=== PATIENT | female | born 1990 | race Caucasian/White ===

== ENCOUNTER 2016-05-29 13:12 | Emergency (ER) | payer BC ==
[~2016-05-29 13:12] MED LIST: NIPPLECREAM TP; PRENATAL VIT1 TAB PO
--- NOTE | 2016-05-31 13:16 | ER ---
ADMIT: 05/29/2016 RM/LOC: ER [facility] MR#: [id number] [facility] [address] [place], [place] [id number] [address] [place] [address] Emergency Room Report SEX: F AGE: 25 : 1990 DATE: 05/29/2016 The patient is a 25-year-old female, came to the ER with chief complaint of right wrist pain status post tripping and falling with outstretched hand. The patient denies any head trauma or loss of consciousness. The patient has been seen by Alex, primary care doctor outside. Right hand got the x-ray and the patient was put on a splint, and sent to ER for double checking. In the ER, the patient had normal neurovascular and range of motion actively was normal but it was painful for the patient. There were no obvious skin lacerations. There was no tenderness on the snuff box. There is small tenderness on the ulnar part of the dorsum of the right wrist. Flexor and extensor tendon exams are normal. There is no tenderness on the metacarpal bones. X-ray was reviewed by the radiologist Dr. Augustin and he believes that there is no fracture or dislocation or subluxation. The patient was reassured and was told that she can take off the splint either tonight or tomorrow morning per their discretion and can use range of motion exercises after that and can use Tylenol and Motrin for pain control. The patient understood the plan and agreed with it and was discharged to home. Blue Torrez MD/ katy JOB #: [id number] CC: Blue Torrez MD, Attending Physician Barbra Johnson, Family Physician
== END 2016-05-29 15:14 | disposition home or self-care (01) ==
LOC: ER 13:12
DX: S60.211A Contusion of right wrist, initial encounter (principal); W18.09XA Striking against other object with subsequent fall, initial encounter